=== PATIENT | male | born 1945 | race Caucasian/White ===

== ENCOUNTER 2018-04-28 09:25 | Inpatient (IN) | payer MEDICARE, OTHER ==
[2018-04-28] MEDS ORDERED: Labetalol HCl 100 MG/20 ML VIAL SLOW IVP PRN (10:02)
[2018-04-28] MEDS ORDERED: Lorazepam 2 MG/ML VIAL SLOW IVP PRN (10:03)
[2018-04-28 10:07] LABS: Acetaminophen Less than 6.0 mcg/mL (10.0-30.0); Alcohol Less than 10 mg/dL (Less than 10); Salicylate Less than 8.0 mg/dL (15.0-30.0)
[2018-04-28 10:22] LABS: CKMB 4.2 ng/mL (0-6.6); Troponin I 0.049 ng/mL (< 0.028)
[2018-04-28] MEDS ORDERED: Milk Of Magnesia 30 ML UDCUP PO PRN (10:59)
[2018-04-28] MEDS ORDERED: Acetaminophen 325 MG TAB PO PRN (10:59)
[2018-04-28 11:17] LABS: Amphetamine Not Detected (NotDetected); Barbiturates Screen Not Detected (NotDetected); Benzodiazepine Screen Not Detected (NotDetected); Cocaine Metabolite Screen Not Detected (NotDetected); Medtox Control Line Valid? VALID (VALID); Medtox Reader # READER 4; Methadone Not Detected (NotDetected); Methamphetamine Not Detected (NotDetected); Opiate Screen Not Detected (NotDetected); Oxycodone Screen Not Detected (NotDetected); Phencyclidine (PCP) Not Detected (NotDetected); THC/Cannabinoid Screen Not Detected (NotDetected); Tricyclic Screen Not Detected (NotDetected)
[2018-04-28 11:19] LABS: Bilirubin Moderate (Negative); Blood, Urine Moderate (Negative); Clarity CLEAR (Clear); Glucose, Urine (Dipstick) Negative (Negative); Leukocyte Trace (Negative); Nitrite Negative (Negative); Protein, Urine (Dipstick) 300 mg/dL (Neg-Trace); Specific Gravity, Urine 1.016 (1.002-1.036)
[2018-04-28 11:22] LABS: Bacteria/HPF None Seen HPF (None Seen); Hyaline Casts/LPF 0-3 HYALINE CAST LPF (0-3 Hyaline); Squamous Epithelial 0-3 HPF (0-3); WBC/HPF 0-3 HPF (0-3)
--- NOTE | 2018-04-28 11:49 | HP ---
PRIMARY CARE PHYSICIAN: The patient cannot remember. CHIEF COMPLAINT: "I really don't know why I was here". HISTORY OF PRESENT ILLNESS: Mr. Matthias Anne is a 73-year-old male with a past medical history which he states is likely elevated blood pressure and high cholesterol. He clearly reports a history of chronic alcohol abuse, drinking about a pint of beer daily, but does not report any withdrawal symptoms because he does not stop drinking. He reports his last drink being around 8:00 p.m. last night. Earlier today, he was found [place] by the side [place] [address] and 911 was called. He was found disoriented and confused by the roadside. On EMS arrival, his blood pressure was found to be 200/130. He was given 2 doses of 10 mg IV labetalol as well as nitro paste and clonidine with better blood pressure control. He was then taken to the emergency room where he had a CT scan of his brain without contrast done which showed nothing acute, but showed hypoattenuation, which could be old or new. He was then transferred to [facility] for possible MRI and neurological evaluation. At the emergency room, the patient states he does not remember how he got there and history was limited due to this acute encephalopathy this patient is suffering from. PAST MEDICAL HISTORY: Hypertension, hyperlipidemia, chronic alcohol abuse. Other medical history difficult to elicit. HOME MEDICATIONS: Bupropion, cilostazol, digoxin, diltiazem, midodrine, Seroquel. PAST SURGICAL HISTORY: Unknown. FAMILY HISTORY: Unclear. SOCIAL HISTORY: He drinks 1 pint of whiskey daily, but denies smoking, no illicit drug use. ALLERGIES: He denies any known drug allergies. REVIEW OF SYSTEMS: Unable to obtain as patient is currently altered. PHYSICAL EXAMINATION: VITAL SIGNS: Blood pressure 168/94. Other vital signs within normal limit. The patient is not requiring supplemental oxygen. HEENT: Normocephalic, atraumatic. Not pale, anicteric. Moist mucous membranes. PERRLA, EOMI. NECK: Supple. No JVD. Full range of movement. CARDIOVASCULAR: S1 and S2, only with a regular rate and rhythm. No murmurs, rubs or gallops. RESPIRATORY: Vesicular breath sounds bilaterally. No wheezes, rales or rhonchi. ABDOMEN: Soft, nontender, nondistended. Bowel sounds normoactive. No hepatosplenomegaly. MUSCULOSKELETAL: No edema. Moves all extremities spontaneously. NEUROLOGIC: Alert and oriented to person and place only. Not oriented to time. He has no obvious focal deficits and no tremors. SKIN: Warm, dry, well-perfused. No rashes or lesions. LABORATORY DATA: CBC significant for thrombocytopenia. Serum magnesium was 1.0 , ammonia of 100. Initial troponin 0.049. EKG showed no signs of acute ischemia. ASSESSMENT: 1. Acute encephalopathy. 2. Elevated ammonia level. 3. Elevated troponin. 4. Chronic alcohol abuse. 5. Thrombocytopenia. 6. Hypertensive urgency. 7. Hypomagnesemia. PLAN: The patient has acute encephalopathy which could be due to his hyperammonemia. A MRI of the brain has been ordered since he showed some attenuation so we also need to rule out a possible CVA, especially with his hypertensive urgency. In addition, we are repleting his magnesium, repleting on CIWA protocol for possible alcohol withdrawal while he is in the hospital. We will also trend his troponin, monitor him on telemetry and obtain a neurologic consult. For his thrombocytopenia we will avoid pharmacological prophylaxis and place on SCDs. In addition, we will obtain a lipid profile, A1c , TSH. He will also be started on aspirin and a statin for possible primary prevention. He might also require an echocardiogram as well as PT/OT evaluation in the next day or so. For hypertensive urgency, it is better controlled since labetalol and clonidine was give. Will place on clonidine 0.1 mg BID due to his h/o alcohol abuse, conrtinue his home diltiazem dose and then labetalol IV PRN. CODE: Full code CVT Prophylaxis: SCDs. MTDD
[2018-04-28 13:27] VITALS: BMI 26.3
[2018-04-28 14:40] LABS: Troponin I 0.054 ng/mL (< 0.028)
--- NOTE | 2018-04-28 14:57 | MRI ---
MRI BRAIN WITHOUT CONTRAST: Date: 04/28/18 HISTORY: Altered mental status. Acute encephalopathy. FINDINGS: Comparison made with exam of 01/10/15. There is a large area of restricted diffusion in the right MERCHANDISING DIRECTOR territory consistent with acute infarc tion. There is T2 prolongation in this region. No evidence of hemorrhage, midline shift, or abnormal extra-axial fluid collections are seen. There is mass effect on the right occipital horn. There are c hanges of cortical atrophy. IMPRESSION: Large acute right MERCHANDISING DIRECTOR infarction. POS: SISSY
[2018-04-28 14:58] LABS: #Basophils 0.1 thou/uL (0.0-0.2); #Eosinphils 0.1 thou/uL (0.0-0.7); #Lymphocytes 1.4 thou/uL (1.20-3.40); #Monocytes 0.7 thou/uL (0.11-0.59); #Neutrophils 3.8 thou/uL (1.40-6.50); %Basophils 1.1 % (0.0-1.0); %Eosinophils 1.4 % (0.0-10.0); %Lymphocytes 22.9 % (21.0-51.0); %Monocytes 11.8 % (0.0-10.0); %Neutrophils 62.8 % (42.0-75.0); Hemoglobin 16.5 g/dL (14.0-18.0); Mean Corpuscular HGB CONC 32.5 g/dL (32.0-36.0); Mean Corpuscular Hemoglobin 33.7 pg (27.0-31.0); Mean Platelet Volume 10.1 fL (7.4-10.4); Platelet Count 60 thou/uL (130-400); RBC Distribution Width 12.4 % (11.5-14.5); Red Blood Cell (RBC) Count 4.89 mill/uL (4.70-6.10); White Blood Cell (WBC) Count 6.1 thou/uL (4.8-10.8)
[2018-04-28 15:15] LABS: ALT (SGPT) 49 U/L (8-55); AST (SGOT) 86 U/L (5-34); Albumin 3.9 g/dL (3.4-4.8); Alkaline Phosphatase 88 U/L (40-150); Anion Gap 21 mmol/L (10-20); BUN (Urea Nitrogen) 16 mg/dL (8.4-25.7); Bilirubin, Total 3.4 mg/dL (0.2-1.2); Calc. Creatinine Clearance 71 mL/min (70-130); Calcium 9.3 mg/dL (7.8-10.44); Carbon Dioxide 24 mmol/L (23-31); Chloride 94 mmol/L (98-107); Estimated GFR-MDRD 61; Globulin 3.5 g/dL (2.4-3.5); Glucose 98 mg/dL (83-110); Potassium 4.3 mmol/L (3.5-5.1); Protein, Total 7.4 g/dL (5.8-8.1); Sodium 135 mmol/L (136-145)
[2018-04-28] MEDS ORDERED: hydrALAZINE 20 MG/ML VIAL SLOW IVP PRN (17:29)
[2018-04-28] MEDS ORDERED: Magnesium Sulfate 4 GM in Sodium Chloride 0.9% 250 ML 250 ML IVPB SCH (17:45)
[2018-04-28] MEDS ORDERED: Diazepam 5 MG TAB PO PRN (20:19)
[2018-04-28] MEDS ORDERED: Diazepam 5 MG TAB PO SCH (20:30)
[2018-04-28] MEDS ORDERED: Thiamine HCl 200 MG/2 ML VIAL IM SCH (20:30)
[2018-04-28] MEDS ORDERED: Prevnar 13-Val Conj/PF 0.5 ML SYRINGE IM ONE (21:00)
[2018-04-28] MEDS: Docusate 100 MG CAP PO SCH (21:03)
[2018-04-28] MEDS: cloNIDine 0.1 MG TAB PO SCH (21:03)
[2018-04-29] MEDS: cloNIDine 0.1 MG TAB PO PRN (03:39)
[2018-04-29] MEDS ORDERED: Diazepam 5 MG TAB PO PRN (04:00)
[2018-04-29 04:43] LABS: #Eosinphils 0.2 thou/uL (0.0-0.7); #Lymphocytes 1.9 thou/uL (1.20-3.40); #Monocytes 0.7 thou/uL (0.11-0.59); #Neutrophils 3.7 thou/uL (1.40-6.50); %Basophils 0.3 % (0.0-1.0); %Eosinophils 2.4 % (0.0-10.0); %Monocytes 10.7 % (0.0-10.0); %Neutrophils 57.5 % (42.0-75.0); Hemoglobin 17.4 g/dL (14.0-18.0); Mean Corpuscular HGB CONC 32.8 g/dL (32.0-36.0); Mean Corpuscular Hemoglobin 34.2 pg (27.0-31.0); Mean Platelet Volume 10.4 fL (7.4-10.4); Platelet Count 60 thou/uL (130-400); RBC Distribution Width 12.5 % (11.5-14.5); Red Blood Cell (RBC) Count 5.08 mill/uL (4.70-6.10); White Blood Cell (WBC) Count 6.4 thou/uL (4.8-10.8)
[2018-04-29 04:56] LABS: ALT (SGPT) 54 U/L (8-55); AST (SGOT) 93 U/L (5-34); Albumin 4.2 g/dL (3.4-4.8); Alkaline Phosphatase 91 U/L (40-150); Anion Gap 17 mmol/L (10-20); BUN (Urea Nitrogen) 16 mg/dL (8.4-25.7); Bilirubin, Total 3.2 mg/dL (0.2-1.2); Calc. Creatinine Clearance 66 mL/min (70-130); Calcium 9.9 mg/dL (7.8-10.44); Carbon Dioxide 30 mmol/L (23-31); Cardiac Risk 1.9 (Less than 4.5); Chloride 94 mmol/L (98-107); Cholesterol 171 mg/dl (< 200 Desired); Estimated GFR-MDRD 56; Globulin 3.6 g/dL (2.4-3.5); Glucose 102 mg/dL (83-110); HDL Cholesterol 90 mg/dL (>60 Neg Risk); LDL Cholesterol, Calculated 64 mg/dL; Potassium 3.5 mmol/L (3.5-5.1); Protein, Total 7.8 g/dL (5.8-8.1); Sodium 137 mmol/L (136-145); Triglycerides 87 mg/dL (Less than 150)
[2018-04-29 04:57] LABS: Troponin I 0.037 ng/mL (< 0.028)
[2018-04-29] MEDS: Multivitamin W/ Minerals 1 TAB PO SCH (08:02)
[2018-04-29] MEDS: cloNIDine 0.1 MG TAB PO SCH ×2 (08:02→21:38)
[2018-04-29] MEDS: Aspirin 325 MG TAB PO SCH (08:02)
[2018-04-29] MEDS: Magnesium Oxide 400 MG TAB PO SCH (08:03)
[2018-04-29] MEDS: Docusate 100 MG CAP PO SCH ×2 (08:03→21:38)
[2018-04-29] MEDS: Folic Acid 1 MG TAB PO SCH ×2 (08:03→08:04)
[2018-04-29] MEDS: Multivit, Chewable SF 1 TAB PO SCH (08:04)
--- NOTE | 2018-04-29 11:23 | PQF ---
DATE: 04-29-18 ATTN: DR. KEYON STANLEY Please exercise your independent, professional judgment in responding to the clarification form. Clinical indicators are provided on the bottom of this form for your review Please check appropriate box(s): [xx ] Demand Ischemia [ ] NM Type ( ) [ ] Other diagnosis [ ] Unable to determine In addition, please specify: Present on Admission (POA): [ ] Yes [ ] No [ ] Unable to determine CLINICAL INDICATORS - SIGNS / SYMPTOMS / LABS: TROPONIN: 04-28: 0.049 0.054 04-29: 0.037 RISKS: ER: CONFUSION, MENTAL STATUS CHANGES, HX OF STROKE, NM, WOODS, HTN, CVA TREATMENTS:ER DOCUMENTATION: PT WAS GIVEN LABETALOL, NITRO PASTE AND CLONIDINE. (This form is maintained as a part of the permanent medical record) 2014 [employer] All Rights Reserved [email or web address] [email or web address] Office: [phone] MICHELLE
--- NOTE | 2018-04-29 11:32 | PDOC.PN ---
- Subjective Encounter Start Date: 04/29/18 (f/u stroke) Encounter Start Time: 11:31 Subjective: Pt denies any complaints or concerns, denies any pain -: is not aware of why he is in the hospital. RN's report -: he is ambulating without assistance - Objective Vital Signs & Weight: Vital Signs (12 hours) Temp Pulse Resp BP BP Pulse Ox 04/29/18 08:03 85 203/99 H 04/29/18 08:02 203/99 H 04/29/18 07:45 97.4 F L 85 16 203/99 H 98 04/29/18 05:17 182/92 H 04/29/18 03:53 97.9 F 84 20 197/105 H 96 04/29/18 03:39 206/97 H 04/29/18 00:00 97.5 F L 87 20 187/105 H 94 L Weight Admit Weight 194 lb 3.636 oz Weight 194 lb 3.636 oz Result Diagrams: 04/29/18 04:08 04/29/18 04:08 EKG Reviewed by me: Yes (abif with rate 70-90's, refusing monitor) Phys Exam - Physical Examination Constitutional: NAD Respiratory: no wheezing, no rales, no rhonchi, clear to auscultation bilateral Cardiovascular: no significant murmur, irregular Gastrointestinal: soft, non-tender, no distention, positive bowel sounds Musculoskeletal: no edema, pulses present Neurological: non-focal, moves all 4 limbs strength 5/5 upper and lower extremities, pupils equal and round eomi Deviation from normal: alert, oriented to person, president but not to time or location Skin: no rash Deviation from normal: general erythematous hue of face Dx/Plan (1) Ischemic stroke Code(s): I63.9 - CEREBRAL INFARCTION, UNSPECIFIED Status: Acute (2) Atrial fibrillation Code(s): I48.91 - UNSPECIFIED ATRIAL FIBRILLATION Status: Acute Qualifiers: Atrial fibrillation type: unspecified Qualified Code(s): I48.91 - Unspecified atrial fibrillation (3) Hypertension Code(s): I10 - ESSENTIAL (PRIMARY) HYPERTENSION Status: Chronic Qualifiers: Hypertension type: essential hypertension Qualified Code(s): I10 - Essential (primary) hypertension (4) Chronic alcohol abuse Code(s): F10.10 - ALCOHOL ABUSE, UNCOMPLICATED Status: Chronic (5) Encephalopathy Code(s): G93.40 - ENCEPHALOPATHY, UNSPECIFIED Status: Acute (6) Hyperammonemia Code(s): E72.20 - DISORDER OF UREA CYCLE METABOLISM, UNSPECIFIED Status: Resolved (7) Thrombocytopenia Code(s): D69.6 - THROMBOCYTOPENIA, UNSPECIFIED Status: Chronic - Plan * 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 * echo ordered * will need cardiology - inpt vs outpt based on echo, as pt is rate controlled and not a candidate for anticoagulation * htn - on diltiazem and clonidine, and allowing for permissive htn. will use prn meds as stroke is about 24 hours * alcohol abuse/chronic use - continue supplements, monitor for withdrawal sx and use prn valium * Thrombocytopenia, elevated lft's - likely from alcohol abuse * * ammonia level back to normal * * dvt prophy - ambulatory, not a candidate for lovenox due to thrombocytopenia * gi prophy - not indicated * * reviewed plan of care twice with patient and he didnt remember having a stroke - reviewed with RN and will discuss/answer questions with family as they are available * * pt remains at high risk in current condition *
--- NOTE | 2018-04-29 11:39 | CON ---
DATE OF CONSULTATION: 04/28/2018 REFERRING PROVIDER: Salvador Oliver MD REASON FOR CONSULTATION: Altered mental status. HISTORY OF PRESENT ILLNESS: Mr. Anne is a pleasant 73-year-old male who has been consulted for evaluation of altered mental status. History is limited as patient is unable to provide. There are no family member present at bedside, thus most of the history is obtained from patient's medical records and dictated H and P note. Apparently, he has a history of high blood pressure and high cholesterol as well as heavy alcohol use. [place] side [place] [address] and 911 was called. He was found disoriented and confused by the roadside. On EMS arrival, his blood pressure was noted to be 200/130. He was brought to the [facility] where a CT scan of the head done which showed hypoattenuation in the right occipital area. For this reason, he was transferred to [facility]. Since being here, patient has no recollection of why he is in the hospital. I am being asked to further evaluate for this episode of confusion. PAST MEDICAL HISTORY: Reviewed and they are as dictated in H and P note done by Dr. Oliver. PAST SURGICAL HISTORY: Reviewed and they are as dictated in H and P note done by Dr. Oliver. FAMILY HISTORY: Reviewed and they are as dictated in H and P note done by Dr. Oliver. SOCIAL HISTORY: Reviewed and they are as dictated in H and P note done by Dr. Oliver. CURRENT MEDICATIONS: Reviewed and they are as dictated in H and P note done by Dr. Oliver. ALLERGIES: Reviewed and they are as dictated in H and P note done by Dr. Oliver. REVIEW OF SYSTEMS: Unable to perform. PHYSICAL EXAMINATION: VITAL SIGNS: Blood pressure of 206/97, pulse of 81, temperature 97.4, respirations of 16, O2 sats 96% on room air. GENERAL: Well-developed and well-nourished male in no apparent distress. RESPIRATORY: Clear to auscultation bilaterally. CARDIOVASCULAR: Regular rate and rhythm. NEUROLOGIC: Mental status: The patient is awake and alert, and oriented to person only. He is able to follow some simple commands. Speech and language appears normal. Cranial nerves: Pupils are 3 mm and reactive. He has a left upper quadrant quadrantanopia. Face is symmetric. Tongue and uvula are midline. Motor exam showed normal tone and bulk with a 5/5 strength in both upper and lower extremities. Sensory: Sensation is intact and symmetric. Deep tendon reflexes 2+ reflexes in both upper and lower extremities. Babinski : Plantar responses flexion bilaterally. Coordination intact to finger-nose- finger, finger tapping bilaterally. Gait and Romberg are normal. LABORATORY DATA: Reviewed, which included CBC, CMP, urinalysis, urine drug screen, plasma alcohol level, which is significant for total bilirubin of 3.4, AST of 86, troponin of 0.054. Urinalysis showed trace leukocyte esterase, but 0 -3 wbc, otherwise unremarkable. IMAGING STUDIES: MRI brain without contrast was reviewed, which showed large right HEALTH INFORMATION SPECIALIST distribution with ischemic infarct in the occipital region. IMPRESSION: 1. Right occipital/right HEALTH INFORMATION SPECIALIST distribution ischemic infarct. 2. Hypertension. 3. Hyperlipidemia. PLAN: Mr. Anne is a pleasant 73-year-old male who presented with altered mental status. He had MRI brain done, which did show acute right HEALTH INFORMATION SPECIALIST distribution ischemic infarct. His confusion is likely secondary to toxic metabolic encephalopathy. I would recommend consulting PT, OT, and speech therapy and needs to be placed on banana bag as well as alcohol withdrawal precautions. I would recommend starting patient on aspirin 325 mg daily for secondary stroke prevention. Also, recommend obtaining echocardiogram. Continue current medical management. Continue supportive care. Thank you for consultation. MICHELLE
[2018-04-30 05:43] LABS: #Basophils 0.1 thou/uL (0.0-0.2); #Eosinphils 0.3 thou/uL (0.0-0.7); #Lymphocytes 1.5 thou/uL (1.20-3.40); #Monocytes 0.7 thou/uL (0.11-0.59); #Neutrophils 3.7 thou/uL (1.40-6.50); %Eosinophils 4.2 % (0.0-10.0); %Lymphocytes 24.7 % (21.0-51.0); %Neutrophils 59.1 % (42.0-75.0); Hemoglobin 15.3 g/dL (14.0-18.0); Mean Corpuscular HGB CONC 31.9 g/dL (32.0-36.0); Mean Corpuscular Hemoglobin 33.4 pg (27.0-31.0); Mean Platelet Volume 10.8 fL (7.4-10.4); Platelet Count 56 thou/uL (130-400); RBC Distribution Width 12.3 % (11.5-14.5); White Blood Cell (WBC) Count 6.3 thou/uL (4.8-10.8)
[2018-04-30 06:00] LABS: ALT (SGPT) 51 U/L (8-55); AST (SGOT) 86 U/L (5-34); Albumin 3.5 g/dL (3.4-4.8); Alkaline Phosphatase 72 U/L (40-150); Anion Gap 15 mmol/L (10-20); BUN (Urea Nitrogen) 19 mg/dL (8.4-25.7); Calc. Creatinine Clearance 73 mL/min (70-130); Calcium 9.3 mg/dL (7.8-10.44); Carbon Dioxide 28 mmol/L (23-31); Chloride 96 mmol/L (98-107); Estimated GFR-MDRD 63; Glucose 96 mg/dL (83-110); Potassium 3.4 mmol/L (3.5-5.1); Protein, Total 6.5 g/dL (5.8-8.1); Sodium 136 mmol/L (136-145)
[2018-04-30] MEDS: Multivitamin W/ Minerals 1 TAB PO SCH (09:08)
[2018-04-30] MEDS: Magnesium Oxide 400 MG TAB PO SCH (09:08)
[2018-04-30] MEDS: Folic Acid 1 MG TAB PO SCH ×2 (09:08→09:12)
[2018-04-30] MEDS: Docusate 100 MG CAP PO SCH ×2 (09:09→20:56)
[2018-04-30] MEDS: Aspirin 325 MG TAB PO SCH (09:09)
[2018-04-30] MEDS: cloNIDine 0.1 MG TAB PO SCH ×2 (09:09→20:56)
[2018-04-30] MEDS: Multivit, Chewable SF 1 TAB PO SCH (09:12)
[2018-04-30] MEDS ORDERED: Lorazepam 1 MG TAB PO PRN (10:06)
--- NOTE | 2018-04-30 20:27 | PDOC.PN ---
- Subjective Encounter Start Date: 04/30/18 Encounter Start Time: 11:00 Patient seen and examined for encephalopathy/Acute CVA. Still confused. No overnight events - Objective MAR Reviewed: Yes Vital Signs & Weight: Vital Signs (12 hours) Temp Pulse Resp BP BP Pulse Ox 04/30/18 20:00 97.7 F 100 18 185/95 H 96 04/30/18 15:33 98.6 F 93 16 174/95 H 97 04/30/18 11:46 97.4 F L 99 16 149/84 H 92 L 04/30/18 09:09 87 203/99 H Weight Admit Weight 194 lb 3.636 oz Weight 194 lb 3.636 oz Result Diagrams: 04/30/18 05:09 04/30/18 05:09 EKG Reviewed by me: Yes (Tele SR) Phys Exam - Physical Examination Constitutional: NAD Respiratory: no wheezing, no rhonchi Cardiovascular: RRR, no rub Gastrointestinal: soft, non-tender, positive bowel sounds Musculoskeletal: no edema Neurological: moves all 4 limbs Psychiatric: normal affect Deviation from normal: Confused Dx/Plan (1) Acute CVA (cerebrovascular accident) Code(s): I63.9 - CEREBRAL INFARCTION, UNSPECIFIED Status: Acute (2) Toxic metabolic encephalopathy Code(s): G92 - TOXIC ENCEPHALOPATHY Status: Acute Comment: Hepatic encephalopathy (3) Paroxysmal A-fib Code(s): I48.0 - PAROXYSMAL ATRIAL FIBRILLATION Status: Chronic Comment: probably not a anticoag candidate (4) Chronic alcohol abuse Code(s): F10.10 - ALCOHOL ABUSE, UNCOMPLICATED Status: Chronic - Plan PT/OT, DVT proph w/SCDs Cont ASA -: Reduce Lactulose to 10 mg TID -: Pt refusing tele monitors -: Cont current meds as below -: Home meds unavailable, AM labs Review of Systems - Review of Systems Respiratory: negative: Cough, Dry, Shortness of Breath, Hemoptysis, SOB with Excertion, Pleuritic Pain, Sputum, Wheezing Cardiovascular: negative: chest pain, palpitations, orthopnea, paroxysmal nocturnal dyspnea, edema, light headedness, other - Medications/Allergies Allergies/Adverse Reactions: Allergies Allergy/AdvReac Type Severity Reaction Status Date / Time No Known Allergies Allergy Unverified 05/22/17 17:13 Medications: Current Medications Acetaminophen (Tylenol) 650 mg PO Q4H PRN PRN Reason: Headache/Fever or Pain Aspirin (Aspirin) 325 mg PO DAILY [facility] Last Admin: 04/30/18 09:09 Dose: 325 mg Clonidine (Catapres) 0.1 mg PO BID [facility] Last Admin: 04/30/18 09:09 Dose: 0.1 mg Clonidine (Catapres) 0.1 mg PO Q4H PRN PRN Reason: SBP > 180 Last Admin: 04/29/18 03:39 Dose: 0.1 mg Diltiazem HCl (Cardizem Cd) 120 mg PO DAILY [facility] Last Admin: 04/30/18 09:09 Dose: 120 mg Docusate Sodium (Colace) 100 mg PO BID [facility] Last Admin: 04/30/18 09:09 Dose: 100 mg Folic Acid (Folvite) 1 mg PO DAILY [facility] Last Admin: 04/30/18 09:08 Dose: 1 mg Hydralazine HCl (Apresoline) 10 mg SLOW IVP Q4H PRN PRN Reason: Hypertension Iron/Minerals/Multivitamins (Theragran M) 1 tab PO DAILY [facility] Last Admin: 04/30/18 09:08 Dose: 1 tab Labetalol HCl (Normodyne) 10 mg SLOW IVP Q4H PRN PRN Reason: SBP Greater Than 180 Last Admin: 04/28/18 17:08 Dose: 2 ml Lactulose (Lactulose) 10 gm PO TID [facility] Last Admin: 04/30/18 15:42 Dose: 10 gm Lorazepam (Ativan) 1 mg PO Q4H PRN PRN Reason: ASE >=9 Magnesium Hydroxide (Milk Of Magnesium) 30 ml PO DAILYPRN PRN PRN Reason: Constipation Magnesium Oxide (Magnesium Oxide) 400 mg PO DAILY [facility] Last Admin: 04/30/18 09:08 Dose: 400 mg Thiamine HCl (Thiamine) 100 mg PO DAILY [facility] Last Admin: 04/30/18 09:09 Dose: 100 mg
[2018-05-01] MEDS: cloNIDine 0.1 MG TAB PO SCH (08:44)
[2018-05-01] MEDS: Folic Acid 1 MG TAB PO SCH (08:44)
[2018-05-01] MEDS: Aspirin 325 MG TAB PO SCH (08:44)
[2018-05-01] MEDS: Propranolol HCl LA 80 MG CAP PO SCH (08:45)
[2018-05-01] MEDS: Magnesium Oxide 400 MG TAB PO SCH (08:45)
[2018-05-01] MEDS: Docusate 100 MG CAP PO SCH ×2 (08:45→20:36)
[2018-05-01] MEDS: Multivitamin W/ Minerals 1 TAB PO SCH (08:45)
--- NOTE | 2018-05-01 12:29 | PDOC.PN ---
- Subjective Encounter Start Date: 05/01/18 Encounter Start Time: 12:35 patient with a h/o chronic alcohol abuse and HTN admitted for new CVA. No complants but patient has new anterograde amnesia. No acute events overnight. - Objective MAR Reviewed: Yes Vital Signs & Weight: Vital Signs (12 hours) Temp Pulse Resp BP BP Pulse Ox 05/01/18 11:31 97.5 F L 79 16 106/53 L 92 L 05/01/18 08:45 76 05/01/18 08:44 185/95 H 05/01/18 08:40 98.3 F 76 16 185/95 H 98 05/01/18 07:30 98.3 F 76 16 139/115 H 98 05/01/18 04:00 97.8 F 113 H 18 129/75 93 L Weight Admit Weight 194 lb 3.636 oz Weight 194 lb 3.636 oz I&O: 04/30/18 05/01/18 05/02/18 06:59 06:59 06:59 Intake Total 240 Balance 240 Result Diagrams: 04/30/18 05:09 04/30/18 05:09 Phys Exam - Physical Examination Constitutional: NAD HEENT: moist MMs, sclera anicteric Neck: supple, full ROM Respiratory: no wheezing, no rales, no rhonchi, clear to auscultation bilateral Cardiovascular: RRR, no significant murmur, no rub Gastrointestinal: soft, non-tender, no distention, positive bowel sounds Musculoskeletal: no edema, pulses present Neurological: moves all 4 limbs Oritnetd to person and place w anterograde amnesia. Skin: no rash, normal turgor Dx/Plan (1) Ischemic stroke Code(s): I63.9 - CEREBRAL INFARCTION, UNSPECIFIED Status: Acute (2) Encephalopathy Code(s): G93.40 - ENCEPHALOPATHY, UNSPECIFIED Status: Acute (3) Chronic alcohol abuse Code(s): F10.10 - ALCOHOL ABUSE, UNCOMPLICATED Status: Chronic (4) Hypertension Code(s): I10 - ESSENTIAL (PRIMARY) HYPERTENSION Status: Chronic Qualifiers: Hypertension type: essential hypertension Qualified Code(s): I10 - Essential (primary) hypertension (5) Paroxysmal A-fib Code(s): I48.0 - PAROXYSMAL ATRIAL FIBRILLATION Status: Chronic Comment: probably not a anticoag candidate (6) Thrombocytopenia Code(s): D69.6 - THROMBOCYTOPENIA, UNSPECIFIED Status: Chronic - Plan cont current plan of care, PT/OT, social services coordinator, speech therapy, out of bed/ ambulate, DVT proph w/heparin Large [employer]ER [employer] stroke with only deficit on exam is short term memory- continue ASA and Statin, PT/OT, speech Atrial fibrillation - uncertain if new or known, due to large stroke and thrombocytopenia, not a candidate for full anticoagulation at this time: continue rate control with diltiazem. Echo showed normal EF. HTN: patient reportedly on Diltiazem and Propranolol on outpatient basis. Will monitor. Review of Systems - Medications/Allergies Allergies/Adverse Reactions: Allergies Allergy/AdvReac Type Severity Reaction Status Date / Time No Known Allergies Allergy Unverified 05/22/17 17:13 Medications: Current Medications Acetaminophen (Tylenol) 650 mg PO Q4H PRN PRN Reason: Headache/Fever or Pain Aspirin (Aspirin) 325 mg PO DAILY [facility] Last Admin: 05/01/18 08:44 Dose: 325 mg Clonidine (Catapres) 0.1 mg PO BID [facility] Last Admin: 05/01/18 08:44 Dose: 0.1 mg Clonidine (Catapres) 0.1 mg PO Q4H PRN PRN Reason: SBP > 180 Last Admin: 04/29/18 03:39 Dose: 0.1 mg Diltiazem HCl (Cardizem Cd) 120 mg PO DAILY [facility] Last Admin: 05/01/18 08:45 Dose: 120 mg Docusate Sodium (Colace) 100 mg PO BID [facility] Last Admin: 05/01/18 08:45 Dose: 100 mg Folic Acid (Folvite) 1 mg PO DAILY [facility] Last Admin: 05/01/18 08:44 Dose: 1 mg Hydralazine HCl (Apresoline) 10 mg SLOW IVP Q4H PRN PRN Reason: Hypertension Iron/Minerals/Multivitamins (Theragran M) 1 tab PO DAILY [facility] Last Admin: 05/01/18 08:45 Dose: 1 tab Labetalol HCl (Normodyne) 10 mg SLOW IVP Q4H PRN PRN Reason: SBP Greater Than 180 Last Admin: 04/28/18 17:08 Dose: 2 ml Lactulose (Lactulose) 10 gm PO TID [facility] Last Admin: 05/01/18 08:43 Dose: 10 gm Lorazepam (Ativan) 1 mg PO Q4H PRN PRN Reason: ASE >=9 Magnesium Hydroxide (Milk Of Magnesium) 30 ml PO DAILYPRN PRN PRN Reason: Constipation Magnesium Oxide (Magnesium Oxide) 400 mg PO DAILY [facility] Last Admin: 05/01/18 08:45 Dose: 400 mg Propranolol HCl (Inderal La) 80 mg PO DAILY [facility] Last Admin: 05/01/18 08:45 Dose: 80 mg Quetiapine Fumarate (Seroquel) 300 mg PO [facility] Thiamine HCl (Thiamine) 100 mg PO DAILY [facility] Last Admin: 05/01/18 08:45 Dose: 100 mg
[2018-05-01] MEDS ORDERED: Potassium Chloride 20 MEQ TAB PO SCH (12:45)
[2018-05-01] MEDS: Atorvastatin Calcium 40 MG TAB PO SCH (20:36)
[2018-05-02 06:26] LABS: Hemoglobin 15.1 g/dL (14.0-18.0); Mean Corpuscular HGB CONC 31.5 g/dL (32.0-36.0); Mean Corpuscular Hemoglobin 32.5 pg (27.0-31.0); Mean Platelet Volume 10.1 fL (7.4-10.4); Platelet Count 68 thou/uL (130-400); RBC Distribution Width 12.3 % (11.5-14.5); Red Blood Cell (RBC) Count 4.64 mill/uL (4.70-6.10); White Blood Cell (WBC) Count 6.9 thou/uL (4.8-10.8)
[2018-05-02 06:47] LABS: Anion Gap 14 mmol/L (10-20); BUN (Urea Nitrogen) 21 mg/dL (8.4-25.7); Calc. Creatinine Clearance 71 mL/min (70-130); Calcium 9.6 mg/dL (7.8-10.44); Carbon Dioxide 27 mmol/L (23-31); Chloride 100 mmol/L (98-107); Estimated GFR-MDRD 61; Glucose 106 mg/dL (83-110); Potassium 3.6 mmol/L (3.5-5.1); Sodium 137 mmol/L (136-145)
[2018-05-02] MEDS: Aspirin 325 MG TAB PO SCH (08:51)
[2018-05-02] MEDS: Potassium Chloride 20 MEQ TAB PO SCH (08:51)
[2018-05-02] MEDS: Magnesium Oxide 400 MG TAB PO SCH (08:51)
[2018-05-02] MEDS: Multivitamin W/ Minerals 1 TAB PO SCH (08:53)
[2018-05-02] MEDS: Folic Acid 1 MG TAB PO SCH (08:53)
[2018-05-02] MEDS: Docusate 100 MG CAP PO SCH ×2 (08:53→21:04)
[2018-05-02] MEDS: Propranolol HCl LA 80 MG CAP PO SCH (08:54)
--- NOTE | 2018-05-02 10:58 | PDOC.PN ---
- Subjective Encounter Start Date: 05/02/18 Encounter Start Time: 10:57 Patient seen and examined. he was found parked on [address], confused and disoriented. He has a h/o chronic alcohol abuse and HTN. CT brain revealed a new CVA, confirmed by MRI. No complaints but patient has new anterograde amnesia. No acute events overnight. - Objective MAR Reviewed: Yes Vital Signs & Weight: Vital Signs (12 hours) Temp Pulse Resp BP BP Pulse Ox 05/02/18 10:30 97.4 F L 85 14 127/68 05/02/18 08:51 85 127/68 05/02/18 03:42 97.5 F L 83 20 127/80 94 L 05/01/18 23:54 97.5 F L 77 20 156/91 H 93 L Weight Admit Weight 194 lb 3.636 oz Weight 194 lb 3.636 oz I&O: 05/01/18 05/02/18 05/03/18 06:59 06:59 06:59 Intake Total 240 600 Balance 240 600 Result Diagrams: 05/02/18 05:56 05/02/18 05:56 Phys Exam - Physical Examination Constitutional: NAD HEENT: moist MMs, sclera anicteric Neck: supple, full ROM Respiratory: no wheezing, no rales, no rhonchi, clear to auscultation bilateral Cardiovascular: RRR, no significant murmur, no rub Gastrointestinal: soft, non-tender, no distention, positive bowel sounds Musculoskeletal: no edema, pulses present Neurological: non-focal, moves all 4 limbs Dx/Plan (1) Ischemic stroke Code(s): I63.9 - CEREBRAL INFARCTION, UNSPECIFIED Status: Acute Comment: Stable. Still suffering from some amnesia. Continue ASA and Statins. (2) Chronic alcohol abuse Code(s): F10.10 - ALCOHOL ABUSE, UNCOMPLICATED Status: Chronic Comment: Stable. No signs of withdrawal. (3) Hypertension Code(s): I10 - ESSENTIAL (PRIMARY) HYPERTENSION Status: Chronic Qualifiers: Hypertension type: essential hypertension Qualified Code(s): I10 - Essential (primary) hypertension Comment: Controlled and at goal. (4) Paroxysmal A-fib Code(s): I48.0 - PAROXYSMAL ATRIAL FIBRILLATION Status: Chronic Comment: rate controlled. On ASA but probably not a anticoag candidate for now. (5) Thrombocytopenia Code(s): D69.6 - THROMBOCYTOPENIA, UNSPECIFIED Status: Chronic Comment: Stable. No signs of acute bleeding. Will hold PCOal anticoagulation and continue SCDs. (6) Hypokalemia Code(s): E87.6 - HYPOKALEMIA Status: Acute - Plan cont current plan of care, PT/OT, social studies teacher, speech therapy, out of bed/ ambulate, DVT proph w/SCDs * . Review of Systems - Medications/Allergies Allergies/Adverse Reactions: Allergies Allergy/AdvReac Type Severity Reaction Status Date / Time No Known Allergies Allergy Unverified 05/22/17 17:13 Medications: Current Medications Acetaminophen (Tylenol) 650 mg PO Q4H PRN PRN Reason: Headache/Fever or Pain Aspirin (Aspirin) 325 mg PO DAILY [facility] Last Admin: 05/02/18 08:51 Dose: 325 mg Atorvastatin Calcium (Lipitor) 40 mg PO HS [facility] Last Admin: 05/01/18 20:36 Dose: 40 mg Clonidine (Catapres) 0.1 mg PO Q4H PRN PRN Reason: SBP > 180 Last Admin: 04/29/18 03:39 Dose: 0.1 mg Diltiazem HCl (Cardizem Cd) 120 mg PO DAILY [facility] Last Admin: 05/02/18 08:51 Dose: 120 mg Docusate Sodium (Colace) 100 mg PO BID [facility] Last Admin: 05/02/18 08:53 Dose: 100 mg Folic Acid (Folvite) 1 mg PO DAILY [facility] Last Admin: 05/02/18 08:53 Dose: 1 mg Hydralazine HCl (Apresoline) 10 mg SLOW IVP Q4H PRN PRN Reason: Hypertension Iron/Minerals/Multivitamins (Theragran M) 1 tab PO DAILY [facility] Last Admin: 05/02/18 08:53 Dose: 1 tab Labetalol HCl (Normodyne) 10 mg SLOW IVP Q4H PRN PRN Reason: SBP Greater Than 180 Last Admin: 04/28/18 17:08 Dose: 2 ml Lorazepam (Ativan) 1 mg PO Q4H PRN PRN Reason: ASE >=9 Magnesium Hydroxide (Milk Of Magnesium) 30 ml PO DAILYPRN PRN PRN Reason: Constipation Magnesium Oxide (Magnesium Oxide) 400 mg PO DAILY [facility] Last Admin: 05/02/18 08:51 Dose: 400 mg Potassium Chloride (K-Dur) 20 meq PO QAM-WM [facility] Last Admin: 05/02/18 08:51 Dose: 20 meq Propranolol HCl (Inderal La) 80 mg PO DAILY [facility] Last Admin: 05/02/18 08:54 Dose: 80 mg Quetiapine Fumarate (Seroquel) 300 mg PO HS [facility] Last Admin: 05/01/18 20:36 Dose: 300 mg Thiamine HCl (Thiamine) 100 mg PO DAILY [facility] Last Admin: 05/02/18 08:50 Dose: 100 mg
[2018-05-02] MEDS: Atorvastatin Calcium 40 MG TAB PO SCH (21:04)
[2018-05-03] MEDS: Potassium Chloride 20 MEQ TAB PO SCH (09:19)
[2018-05-03] MEDS: Aspirin 325 MG TAB PO SCH (09:19)
[2018-05-03] MEDS: Folic Acid 1 MG TAB PO SCH (09:20)
[2018-05-03] MEDS: Magnesium Oxide 400 MG TAB PO SCH ×2 (09:20→20:36)
[2018-05-03] MEDS: Docusate 100 MG CAP PO SCH ×2 (09:20→20:36)
[2018-05-03] MEDS: Propranolol HCl LA 80 MG CAP PO SCH (09:20)
[2018-05-03] MEDS: Multivitamin W/ Minerals 1 TAB PO SCH (09:20)
--- NOTE | 2018-05-03 09:33 | PDOC.PN ---
- Subjective Encounter Start Date: 05/03/18 Encounter Start Time: 09:28 Patient seen and examined. he was found parked on [address], confused and disoriented. He has a h/o chronic alcohol abuse and HTN. 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 No complaints today but reports feeling well. He has a new anterograde amnesia. No acute events overnight. - Objective Vital Signs & Weight: Vital Signs (12 hours) Temp Pulse Resp BP BP BP Pulse Ox 05/03/18 09:19 79 144/67 H 05/03/18 08:00 144/67 H 05/03/18 07:34 97.7 F 79 14 144/67 H 94 L 05/03/18 05:50 97.6 F 73 16 147/78 H 147/78 H 97 05/02/18 23:42 97.9 F 72 16 149/85 H 149/85 H 95 Weight Admit Weight 194 lb 3.636 oz Weight 194 lb 3.636 oz I&O: 05/02/18 05/03/18 05/04/18 06:59 06:59 06:59 Intake Total 240 720 Balance 240 720 Result Diagrams: 05/02/18 05:56 05/02/18 05:56 Phys Exam - Physical Examination Constitutional: NAD HEENT: moist MMs, sclera anicteric Neck: no JVD, supple, full ROM Respiratory: no wheezing, no rales, no rhonchi, clear to auscultation bilateral Cardiovascular: RRR, no significant murmur, no rub Gastrointestinal: soft, non-tender, no distention, positive bowel sounds Musculoskeletal: no edema, pulses present Neurological: moves all 4 limbs Psychiatric: normal affect, A&O x 3 Skin: no rash, normal turgor Dx/Plan (1) Ischemic stroke Code(s): I63.9 - CEREBRAL INFARCTION, UNSPECIFIED Status: Acute Comment: Stable. Continue ASA and Statins. (2) Chronic alcohol abuse Code(s): F10.10 - ALCOHOL ABUSE, UNCOMPLICATED Status: Chronic Comment: Stable. No signs of withdrawal. (3) Hypertension Code(s): I10 - ESSENTIAL (PRIMARY) HYPERTENSION Status: Chronic Qualifiers: Hypertension type: essential hypertension Qualified Code(s): I10 - Essential (primary) hypertension Comment: Controlled and at goal. (4) Paroxysmal A-fib Code(s): I48.0 - PAROXYSMAL ATRIAL FIBRILLATION Status: Chronic Comment: rate controlled. On ASA but probably not a anticoag candidate for now. (5) Thrombocytopenia Code(s): D69.6 - THROMBOCYTOPENIA, UNSPECIFIED Status: Chronic Comment: Stable. No signs of acute bleeding. Continue SCDs. (6) Hypokalemia Code(s): E87.6 - HYPOKALEMIA Status: Acute - Plan cont current plan of care, PT/OT, social insurance analyst, out of bed/ambulate, DVT proph w/SCDs Awaiting placement. CM on board. Review of Systems - Medications/Allergies Allergies/Adverse Reactions: Allergies Allergy/AdvReac Type Severity Reaction Status Date / Time No Known Allergies Allergy Unverified 05/22/17 17:13 Medications: Current Medications Acetaminophen (Tylenol) 650 mg PO Q4H PRN PRN Reason: Headache/Fever or Pain Aspirin (Aspirin) 325 mg PO DAILY [facility] Last Admin: 05/03/18 09:19 Dose: 325 mg Atorvastatin Calcium (Lipitor) 40 mg PO HS [facility] Last Admin: 05/02/18 21:04 Dose: 40 mg Clonidine (Catapres) 0.1 mg PO Q4H PRN PRN Reason: SBP > 180 Last Admin: 04/29/18 03:39 Dose: 0.1 mg Diltiazem HCl (Cardizem Cd) 120 mg PO DAILY [facility] Last Admin: 05/03/18 09:19 Dose: 120 mg Docusate Sodium (Colace) 100 mg PO BID [facility] Last Admin: 05/03/18 09:20 Dose: 100 mg Folic Acid (Folvite) 1 mg PO DAILY [facility] Last Admin: 05/03/18 09:20 Dose: 1 mg Hydralazine HCl (Apresoline) 10 mg SLOW IVP Q4H PRN PRN Reason: Hypertension Iron/Minerals/Multivitamins (Theragran M) 1 tab PO DAILY [facility] Last Admin: 05/03/18 09:20 Dose: 1 tab Labetalol HCl (Normodyne) 10 mg SLOW IVP Q4H PRN PRN Reason: SBP Greater Than 180 Last Admin: 04/28/18 17:08 Dose: 2 ml Lorazepam (Ativan) 1 mg PO Q4H PRN PRN Reason: ASE >=9 Magnesium Hydroxide (Milk Of Magnesium) 30 ml PO DAILYPRN PRN PRN Reason: Constipation Magnesium Oxide (Magnesium Oxide) 400 mg PO DAILY [facility] Last Admin: 05/03/18 09:20 Dose: 400 mg Potassium Chloride (K-Dur) 20 meq PO QAM-WM [facility] Last Admin: 05/03/18 09:19 Dose: 20 meq Propranolol HCl (Inderal La) 80 mg PO DAILY [facility] Last Admin: 05/03/18 09:20 Dose: 80 mg Quetiapine Fumarate (Seroquel) 300 mg PO HS [facility] Last Admin: 05/02/18 21:04 Dose: 300 mg Thiamine HCl (Thiamine) 100 mg PO DAILY [facility] Last Admin: 05/03/18 09:20 Dose: 100 mg
[2018-05-03 11:42] LABS: Anion Gap 11 mmol/L (10-20); BUN (Urea Nitrogen) 26 mg/dL (8.4-25.7); Calc. Creatinine Clearance 55 mL/min (70-130); Calcium 10.1 mg/dL (7.8-10.44); Carbon Dioxide 32 mmol/L (23-31); Chloride 99 mmol/L (98-107); Estimated GFR-MDRD 45; Glucose 134 mg/dL (83-110); Magnesium 1.6 mg/dL (1.6-2.6); Potassium 4.1 mmol/L (3.5-5.1); Sodium 138 mmol/L (136-145)
[2018-05-03] MEDS ORDERED: Magnesium Sulfate 2 GM in Sodium Chloride 0.9% 100 ML IVPB SCH (15:30)
[2018-05-03] MEDS: Atorvastatin Calcium 40 MG TAB PO SCH (20:36)
[2018-05-04] MEDS: Aspirin 325 MG TAB PO SCH (09:10)
[2018-05-04] MEDS: Docusate 100 MG CAP PO SCH ×2 (09:10→20:26)
[2018-05-04] MEDS: Potassium Chloride 20 MEQ TAB PO SCH (09:10)
[2018-05-04] MEDS: Magnesium Oxide 400 MG TAB PO SCH ×2 (09:11→20:26)
[2018-05-04] MEDS: Propranolol HCl LA 80 MG CAP PO SCH (09:11)
[2018-05-04] MEDS: Folic Acid 1 MG TAB PO SCH (09:11)
[2018-05-04] MEDS: Multivitamin W/ Minerals 1 TAB PO SCH (09:11)
--- NOTE | 2018-05-04 13:38 | PDOC.PN ---
- Subjective Encounter Start Date: 05/04/18 Encounter Start Time: 16:16 Patient seen and examined. he was found parked on [address], confused and disoriented. He has a h/o chronic alcohol abuse and HTN. 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 No complaints today but reports feeling well. He has a new anterograde amnesia. No acute events overnight. - Objective MAR Reviewed: Yes Vital Signs & Weight: Vital Signs (12 hours) Temp Pulse Resp BP BP BP Pulse Ox 05/04/18 11:53 98.1 F 88 20 137/87 95 05/04/18 09:10 62 157/94 H 05/04/18 08:00 97.5 F L 62 20 157/94 H 97 05/04/18 04:00 97.4 F L 82 24 H 160/86 H 97 Weight Admit Weight 194 lb 3.636 oz Weight 194 lb 3.636 oz I&O: 05/03/18 05/04/18 05/05/18 06:59 06:59 06:59 Intake Total 720 Balance 720 Result Diagrams: 05/02/18 05:56 05/03/18 11:13 Phys Exam - Physical Examination Constitutional: NAD HEENT: moist MMs, sclera anicteric Neck: supple, full ROM Respiratory: no wheezing, no rales, no rhonchi, clear to auscultation bilateral Cardiovascular: RRR, no significant murmur, no rub Gastrointestinal: soft, non-tender, no distention, positive bowel sounds Musculoskeletal: no edema, pulses present Skin: no rash, normal turgor Dx/Plan (1) GLORIA (acute kidney injury) Code(s): N17.9 - ACUTE KIDNEY FAILURE, UNSPECIFIED Status: Acute Comment: Likely pre-renal 2/2 poor PO intake. Will give a bolus of normal saline. (2) Ischemic stroke Code(s): I63.9 - CEREBRAL INFARCTION, UNSPECIFIED Status: Acute Comment: Stable. Continue ASA and Statins. (3) Chronic alcohol abuse Code(s): F10.10 - ALCOHOL ABUSE, UNCOMPLICATED Status: Chronic Comment: Stable. No signs of withdrawal. (4) Hypertension Code(s): I10 - ESSENTIAL (PRIMARY) HYPERTENSION Status: Chronic Qualifiers: Hypertension type: essential hypertension Qualified Code(s): I10 - Essential (primary) hypertension Comment: Controlled and at goal. (5) Paroxysmal A-fib Code(s): I48.0 - PAROXYSMAL ATRIAL FIBRILLATION Status: Chronic Comment: Rate controlled. Asymptomatic. On ASA but probably not an anticoag candidate for now. (6) Thrombocytopenia Code(s): D69.6 - THROMBOCYTOPENIA, UNSPECIFIED Status: Chronic Comment: Stable. No signs of acute bleeding. Continue SCDs. (7) Hypokalemia Code(s): E87.6 - HYPOKALEMIA Status: Acute - Plan cont current plan of care, PT/OT, director social, out of bed/ambulate disability manager on board. Has referred patient to rehabilitation facilities. Awaiting response. f/u cardiology recommendations. Review of Systems - Medications/Allergies Allergies/Adverse Reactions: Allergies Allergy/AdvReac Type Severity Reaction Status Date / Time No Known Allergies Allergy Unverified 05/22/17 17:13 Medications: Current Medications Acetaminophen (Tylenol) 650 mg PO Q4H PRN PRN Reason: Headache/Fever or Pain Aspirin (Aspirin) 325 mg PO DAILY [facility] Last Admin: 05/04/18 09:10 Dose: 325 mg Atorvastatin Calcium (Lipitor) 40 mg PO HS [facility] Last Admin: 05/03/18 20:36 Dose: 40 mg Clonidine (Catapres) 0.1 mg PO Q4H PRN PRN Reason: SBP > 180 Last Admin: 04/29/18 03:39 Dose: 0.1 mg Diltiazem HCl (Cardizem Cd) 120 mg PO DAILY [facility] Last Admin: 05/04/18 09:10 Dose: 120 mg Docusate Sodium (Colace) 100 mg PO BID [facility] Last Admin: 05/04/18 09:10 Dose: 100 mg Folic Acid (Folvite) 1 mg PO DAILY [facility] Last Admin: 05/04/18 09:11 Dose: 1 mg Hydralazine HCl (Apresoline) 10 mg SLOW IVP Q4H PRN PRN Reason: Hypertension Iron/Minerals/Multivitamins (Theragran M) 1 tab PO DAILY [facility] Last Admin: 05/04/18 09:11 Dose: 1 tab Labetalol HCl (Normodyne) 10 mg SLOW IVP Q4H PRN PRN Reason: SBP Greater Than 180 Last Admin: 04/28/18 17:08 Dose: 2 ml Lorazepam (Ativan) 1 mg PO Q4H PRN PRN Reason: ASE >=9 Magnesium Hydroxide (Milk Of Magnesium) 30 ml PO DAILYPRN PRN PRN Reason: Constipation Magnesium Oxide (Magnesium Oxide) 400 mg PO BID [facility] Last Admin: 05/04/18 09:11 Dose: 400 mg Potassium Chloride (K-Dur) 20 meq PO QAM-WM [facility] Last Admin: 05/04/18 09:10 Dose: 20 meq Propranolol HCl (Inderal La) 80 mg PO DAILY [facility] Last Admin: 05/04/18 09:11 Dose: 80 mg Quetiapine Fumarate (Seroquel) 300 mg PO HS [facility] Last Admin: 05/03/18 20:36 Dose: 300 mg Thiamine HCl (Thiamine) 100 mg PO DAILY [facility] Last Admin: 05/04/18 09:11 Dose: 100 mg
[2018-05-04] MEDS ORDERED: Sodium Chloride 0.45% 1,000 ML IV SCH (16:30)
[2018-05-04] MEDS: Atorvastatin Calcium 40 MG TAB PO SCH (20:26)
--- NOTE | 2018-05-05 01:32 | CON ---
DATE OF CONSULTATION: 05/04/2018 REASON FOR CONSULTATION: Atrial fibrillation with stroke. HISTORY OF PRESENT ILLNESS: Mr. Matthias Anne is a 73-year-old man. He presented to the hospital afte r being brought to this institution, after being found down by the side of the road. Apparently, brenda eone found in part by the side of the road, he is confused and disoriented. EMS was called. Blood p ressure was 200/130. The patient was brought to this institution, where he was found to have had a s troke. He also is in atrial fibrillation. The patient does not recall any of this. PAST MEDICAL HISTORY: 1. Hypertension. 2. Hyperlipidemia. 3. Chronic alcoholism. 4. The patient states he saw Dr. Schwarz, but does not know the reason. HOME MEDICATIONS: 1. Bupropion. 2. Digoxin. 3. Diltiazem. 4. Midodrine. 5. Seroquel. PAST SURGICAL HISTORY: Unknown. FAMILY HISTORY: Unclear. SOCIAL HISTORY: States drinks whiskey on a daily basis. ALLERGIES: None known. REVIEW OF SYSTEMS: Not reliable. PHYSICAL EXAMINATION: GENERAL: It is a pleasant gentleman, still does not know where he is. VITAL SIGNS: His blood pressure 137/66; pulse 70s, irregular. HEENT: Eyes, sclerae nonicteric. Mouth mucous membranes moist. NECK: Supple, no lymphadenopathy. LUNGS: Clear. CARDIAC: Irregularly irregular. ABDOMEN: Soft, nontender. EXTREMITIES: No clubbing or cyanosis. There is no edema. Peripheral pulses seem diminished. PERTINENT LABORATORY DATA: The MCV is 104. Potassium is 4.1, creatinine 1.52, alcohol level was les s than 10 on the . Brain MRI on the revealed large right acute posterior circulation infarc t. Echocardiogram revealed ejection fraction 55-60%, mild left atrial enlargement. EKG reveals atrial f ibrillation, did have 1 episode of accelerated idioventricular rhythm this morning. ASSESSMENT: 1. Alcoholism. The patient states he drinks whiskey on a daily basis. 2. Atrial fibrillation, suspect chronic. 3. Stroke, probably cardioembolic. 4. Unfortunately poor candidate for anticoagulation with alcoholism. PLAN: 1. Agree with stopping digoxin. 2. Echocardiogram was done. 3. If the patient's situation improved in terms of mental status, consideration could be given antic oagulation, but unfortunately, with his alcoholism, the risk of bleeding is substantially high. Unfo rtunately, prognosis is poor in general with this constellation of problems. 4. We are trying to obtain records from Dr. Schwarz's office. The patient states he is the patient o f Dr. Schwarz.
[2018-05-05 06:01] LABS: Anion Gap 12 mmol/L (10-20); BUN (Urea Nitrogen) 30 mg/dL (8.4-25.7); Calc. Creatinine Clearance 61 mL/min (70-130); Calcium 10.2 mg/dL (7.8-10.44); Carbon Dioxide 27 mmol/L (23-31); Chloride 103 mmol/L (98-107); Estimated GFR-MDRD 51; Glucose 100 mg/dL (83-110); Potassium 4.3 mmol/L (3.5-5.1); Sodium 138 mmol/L (136-145)
[2018-05-05 06:53] LABS: Mean Corpuscular HGB CONC 30.7 g/dL (32.0-36.0); Mean Corpuscular Hemoglobin 32.2 pg (27.0-31.0); Mean Platelet Volume 10.2 fL (7.4-10.4); Platelet Count 85 thou/uL (130-400); RBC Distribution Width 12.4 % (11.5-14.5); Red Blood Cell (RBC) Count 4.97 mill/uL (4.70-6.10); White Blood Cell (WBC) Count 7.1 thou/uL (4.8-10.8)
[2018-05-05] MEDS ORDERED: Sodium Chloride 0.9% 1,000 ML IV SCH (07:30)
--- NOTE | 2018-05-05 08:55 | PDOC.PN ---
- Subjective Encounter Start Date: 05/05/18 Encounter Start Time: 08:54 Patient seen and examined. He has a h/o chronic alcohol abuse and HTN and was found parked on [address], confused and disoriented. 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 No complaints today and reports feeling well. He has a new anterograde amnesia. No acute events overnight. He is medically stable and awaiting possible placement. CM on board. - Objective Vital Signs & Weight: Vital Signs (12 hours) Temp Pulse Resp BP Pulse Ox 05/05/18 07:53 97.8 F 70 16 139/74 96 05/05/18 04:00 97.5 F L 71 18 138/65 97 05/05/18 00:00 97.5 F L 74 18 135/63 94 L Weight Admit Weight 194 lb 3.636 oz Weight 194 lb 3.636 oz Result Diagrams: 05/05/18 05:29 05/05/18 05:29 Phys Exam - Physical Examination Constitutional: NAD HEENT: moist MMs, sclera anicteric Neck: supple, full ROM Respiratory: no wheezing, no rales, no rhonchi, clear to auscultation bilateral Cardiovascular: RRR, no significant murmur, no rub Gastrointestinal: soft, non-tender, no distention, positive bowel sounds Musculoskeletal: no edema Neurological: non-focal, moves all 4 limbs Skin: no rash, normal turgor Dx/Plan (1) GLORIA (acute kidney injury) Code(s): N17.9 - ACUTE KIDNEY FAILURE, UNSPECIFIED Status: Acute Comment: Improving. Likely pre-renal 2/2 poor PO intake. He received a bolus of normal saline. Will encourage increased PO intake. (2) Ischemic stroke Code(s): I63.9 - CEREBRAL INFARCTION, UNSPECIFIED Status: Acute Comment: Stable. Continue ASA and Statins. (3) Chronic alcohol abuse Code(s): F10.10 - ALCOHOL ABUSE, UNCOMPLICATED Status: Chronic Comment: Stable. No signs of withdrawal. (4) Hypertension Code(s): I10 - ESSENTIAL (PRIMARY) HYPERTENSION Status: Chronic Qualifiers: Hypertension type: essential hypertension Qualified Code(s): I10 - Essential (primary) hypertension Comment: Controlled and at goal. (5) Paroxysmal A-fib Code(s): I48.0 - PAROXYSMAL ATRIAL FIBRILLATION Status: Chronic Comment: Rate controlled. Asymptomatic. On ASA but probably not an anticoag candidate for now. (6) Thrombocytopenia Code(s): D69.6 - THROMBOCYTOPENIA, UNSPECIFIED Status: Chronic Comment: Stable. No signs of acute bleeding. Continue SCDs. (7) Hypokalemia Code(s): E87.6 - HYPOKALEMIA Status: Resolved - Plan * . Review of Systems - Medications/Allergies Allergies/Adverse Reactions: Allergies Allergy/AdvReac Type Severity Reaction Status Date / Time No Known Allergies Allergy Unverified 05/22/17 17:13 Medications: Current Medications Acetaminophen (Tylenol) 650 mg PO Q4H PRN PRN Reason: Headache/Fever or Pain Aspirin (Aspirin) 325 mg PO DAILY [facility] Last Admin: 05/04/18 09:10 Dose: 325 mg Atorvastatin Calcium (Lipitor) 40 mg PO HS [facility] Last Admin: 05/04/18 20:26 Dose: 40 mg Clonidine (Catapres) 0.1 mg PO Q4H PRN PRN Reason: SBP > 180 Last Admin: 04/29/18 03:39 Dose: 0.1 mg Diltiazem HCl (Cardizem Cd) 120 mg PO DAILY [facility] Last Admin: 05/04/18 09:10 Dose: 120 mg Docusate Sodium (Colace) 100 mg PO BID [facility] Last Admin: 05/04/18 20:26 Dose: 100 mg Folic Acid (Folvite) 1 mg PO DAILY [facility] Last Admin: 05/04/18 09:11 Dose: 1 mg Hydralazine HCl (Apresoline) 10 mg SLOW IVP Q4H PRN PRN Reason: Hypertension Sodium Chloride (Normal Saline 0.9%) 1,000 mls @ 75 mls/hr IV .[id number] [facility] Stop: 05/05/18 20:49 Iron/Minerals/Multivitamins (Theragran M) 1 tab PO DAILY [facility] Last Admin: 05/04/18 09:11 Dose: 1 tab Labetalol HCl (Normodyne) 10 mg SLOW IVP Q4H PRN PRN Reason: SBP Greater Than 180 Last Admin: 04/28/18 17:08 Dose: 2 ml Lorazepam (Ativan) 1 mg PO Q4H PRN PRN Reason: ASE >=9 Magnesium Hydroxide (Milk Of Magnesium) 30 ml PO DAILYPRN PRN PRN Reason: Constipation Magnesium Oxide (Magnesium Oxide) 400 mg PO BID [facility] Last Admin: 05/04/18 20:26 Dose: 400 mg Potassium Chloride (K-Dur) 20 meq PO QAM-WM [facility] Last Admin: 05/04/18 09:10 Dose: 20 meq Propranolol HCl (Inderal La) 80 mg PO DAILY [facility] Last Admin: 05/04/18 09:11 Dose: 80 mg Quetiapine Fumarate (Seroquel) 300 mg PO HS [facility] Last Admin: 05/04/18 20:26 Dose: 300 mg Sodium Chloride (Flush - Normal Saline) 10 ml IVF Q12HR [facility] Sodium Chloride (Flush - Normal Saline) 10 ml IVF PRN PRN PRN Reason: Saline Flush Thiamine HCl (Thiamine) 100 mg PO DAILY [facility] Last Admin: 05/04/18 09:11 Dose: 100 mg
[2018-05-05] MEDS: Aspirin 325 MG TAB PO SCH (08:56)
[2018-05-05] MEDS: Docusate 100 MG CAP PO SCH ×2 (08:58→20:45)
[2018-05-05] MEDS: Folic Acid 1 MG TAB PO SCH (08:59)
[2018-05-05] MEDS: Magnesium Oxide 400 MG TAB PO SCH ×2 (08:59→20:45)
[2018-05-05] MEDS: Propranolol HCl LA 80 MG CAP PO SCH (09:00)
[2018-05-05] MEDS: Multivitamin W/ Minerals 1 TAB PO SCH (09:00)
[2018-05-05] MEDS: Potassium Chloride 20 MEQ TAB PO SCH (09:06)
[2018-05-05] MEDS: Atorvastatin Calcium 40 MG TAB PO SCH (20:45)
[2018-05-06] MEDS: Folic Acid 1 MG TAB PO SCH (09:32)
[2018-05-06] MEDS: Aspirin 325 MG TAB PO SCH (09:32)
[2018-05-06] MEDS: Docusate 100 MG CAP PO SCH (09:32)
[2018-05-06] MEDS: Magnesium Oxide 400 MG TAB PO SCH (09:32)
[2018-05-06] MEDS: Multivitamin W/ Minerals 1 TAB PO SCH (09:32)
[2018-05-06] MEDS: Propranolol HCl LA 80 MG CAP PO SCH (09:32)
--- NOTE | 2018-05-06 11:10 | PDOC.PN ---
- Subjective Encounter Start Date: 05/06/18 Encounter Start Time: 11:06 Patient seen and examined. He has a h/o chronic alcohol abuse and HTN and was found parked on [address], confused and disoriented. 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 No complaints today and reports feeling well. He has a new anterograde amnesia. No acute events overnight. He is medically stable and awaiting placement. CM on board. - Objective MAR Reviewed: Yes Vital Signs & Weight: Vital Signs (12 hours) Temp Pulse Resp BP BP Pulse Ox 05/06/18 09:32 83 05/06/18 08:00 98.6 F 83 16 05/06/18 07:46 98.6 F 83 16 146/63 H 95 05/06/18 04:35 97.5 F L 66 18 148/69 H 93 L 05/05/18 23:45 97.7 F 66 20 148/75 H 96 Weight Admit Weight 194 lb 3.636 oz Weight 194 lb 3.636 oz Result Diagrams: 05/05/18 05:29 05/05/18 05:29 Phys Exam - Physical Examination Constitutional: NAD HEENT: moist MMs, sclera anicteric Neck: no JVD, supple, full ROM Respiratory: no wheezing, no rales, no rhonchi, clear to auscultation bilateral Cardiovascular: RRR, no significant murmur, no rub Gastrointestinal: soft, non-tender, no distention, positive bowel sounds Musculoskeletal: no edema, pulses present Neurological: non-focal, normal sensation, moves all 4 limbs Skin: no rash, normal turgor Dx/Plan (1) GLORIA (acute kidney injury) Code(s): N17.9 - ACUTE KIDNEY FAILURE, UNSPECIFIED Status: Acute Comment: Improving. Likely pre-renal 2/2 poor PO intake. Encouraged on increased PO intake. (2) Ischemic stroke Code(s): I63.9 - CEREBRAL INFARCTION, UNSPECIFIED Status: Acute Comment: Stable. Continue ASA and Statins. (3) Chronic alcohol abuse Code(s): F10.10 - ALCOHOL ABUSE, UNCOMPLICATED Status: Chronic Comment: Stable. No signs of withdrawal. (4) Hypertension Code(s): I10 - ESSENTIAL (PRIMARY) HYPERTENSION Status: Chronic Qualifiers: Hypertension type: essential hypertension Qualified Code(s): I10 - Essential (primary) hypertension Comment: Controlled and at goal. (5) Paroxysmal A-fib Code(s): I48.0 - PAROXYSMAL ATRIAL FIBRILLATION Status: Chronic Comment: Rate controlled. Asymptomatic. On ASA. Not a candidate for anticoagulation 2/2 alcoholism. (6) Thrombocytopenia Code(s): D69.6 - THROMBOCYTOPENIA, UNSPECIFIED Status: Chronic Comment: Stable. No signs of acute bleeding. Continue SCDs. (7) Hypokalemia Code(s): E87.6 - HYPOKALEMIA Status: Resolved - Plan cont current plan of care, plan discussed w/ family, PT/OT, high school social studies tutor, speech therapy, out of bed/ambulate, DVT proph w/SCDs * . Review of Systems - Medications/Allergies Allergies/Adverse Reactions: Allergies Allergy/AdvReac Type Severity Reaction Status Date / Time No Known Allergies Allergy Unverified 05/22/17 17:13 Medications: Current Medications Acetaminophen (Tylenol) 650 mg PO Q4H PRN PRN Reason: Headache/Fever or Pain Aspirin (Aspirin) 325 mg PO DAILY [facility] Last Admin: 05/06/18 09:32 Dose: 325 mg Atorvastatin Calcium (Lipitor) 40 mg PO HS [facility] Last Admin: 05/05/18 20:45 Dose: 40 mg Clonidine (Catapres) 0.1 mg PO Q4H PRN PRN Reason: SBP > 180 Last Admin: 04/29/18 03:39 Dose: 0.1 mg Diltiazem HCl (Cardizem Cd) 120 mg PO DAILY [facility] Last Admin: 05/06/18 09:32 Dose: 120 mg Docusate Sodium (Colace) 100 mg PO BID [facility] Last Admin: 05/06/18 09:32 Dose: 100 mg Folic Acid (Folvite) 1 mg PO DAILY [facility] Last Admin: 05/06/18 09:32 Dose: 1 mg Hydralazine HCl (Apresoline) 10 mg SLOW IVP Q4H PRN PRN Reason: Hypertension Iron/Minerals/Multivitamins (Theragran M) 1 tab PO DAILY [facility] Last Admin: 05/06/18 09:32 Dose: 1 tab Labetalol HCl (Normodyne) 10 mg SLOW IVP Q4H PRN PRN Reason: SBP Greater Than 180 Last Admin: 04/28/18 17:08 Dose: 2 ml Lorazepam (Ativan) 1 mg PO Q4H PRN PRN Reason: ASE >=9 Magnesium Hydroxide (Milk Of Magnesium) 30 ml PO DAILYPRN PRN PRN Reason: Constipation Magnesium Oxide (Magnesium Oxide) 400 mg PO BID [facility] Last Admin: 05/06/18 09:32 Dose: 400 mg Pantoprazole Sodium (Protonix) 40 mg PO DAILY [facility] Last Admin: 05/06/18 09:32 Dose: 40 mg Propranolol HCl (Inderal La) 80 mg PO DAILY [facility] Last Admin: 05/06/18 09:32 Dose: 80 mg Quetiapine Fumarate (Seroquel) 300 mg PO HS [facility] Last Admin: 05/05/18 20:49 Dose: 300 mg Sodium Chloride (Flush - Normal Saline) 10 ml IVF Q12HR [facility] Last Admin: 05/06/18 09:36 Dose: 10 ml Sodium Chloride (Flush - Normal Saline) 10 ml IVF PRN PRN PRN Reason: Saline Flush Thiamine HCl (Thiamine) 100 mg PO DAILY [facility] Last Admin: 05/06/18 09:32 Dose: 100 mg
--- NOTE | 2018-05-06 13:24 | RAD ---
CHEST ONE VIEW: HISTORY: Chest pain. COMPARISON: None. FINDINGS: The cardiac silhouette is magnified by projection and is at the upper limits of normal in size. The pulmonary vasculature are unremarkable. The mediastinum is midline with aortic calcification. Calci fied granulomata are consistent with healed granulomatous disease. No lobar consolidation or evidenc e of pneumothorax. IMPRESSION: 1. Borderline cardiomegaly. 2. Atherosclerosis. 3. No evidence of consolidation or cavitations. POS: H
[2018-05-07] MEDS: Magnesium Oxide 400 MG TAB PO SCH ×3 (07:32→20:13)
[2018-05-07] MEDS: Atorvastatin Calcium 40 MG TAB PO SCH ×2 (07:32→20:13)
[2018-05-07] MEDS: Docusate 100 MG CAP PO SCH ×3 (07:32→20:13)
[2018-05-07] MEDS: Aspirin 325 MG TAB PO SCH (09:18)
[2018-05-07] MEDS: Multivitamin W/ Minerals 1 TAB PO SCH (09:19)
[2018-05-07] MEDS: Propranolol HCl LA 80 MG CAP PO SCH (09:20)
[2018-05-07] MEDS: Folic Acid 1 MG TAB PO SCH (09:20)
--- NOTE | 2018-05-07 13:01 | PDOC.PN ---
- Subjective Encounter Start Date: 05/07/18 Encounter Start Time: 13:00 Patient seen and examined. He has a h/o chronic alcohol abuse and HTN and was found parked on [address], confused and disoriented. 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 No complaints today and reports feeling well. He has a new anterograde amnesia. No acute events overnight. He is medically stable and awaiting placement. CM on board. - Objective MAR Reviewed: Yes Vital Signs & Weight: Vital Signs (12 hours) Temp Pulse Resp BP BP Pulse Ox 05/07/18 11:30 97.6 F 76 12 158/82 H 96 05/07/18 08:00 97.7 F 72 16 05/07/18 06:58 97.7 F 72 16 153/77 H 94 L 05/07/18 03:55 98.2 F 66 20 131/67 95 Weight Admit Weight 194 lb 3.636 oz Weight 194 lb 3.636 oz I&O: 05/06/18 05/07/18 05/08/18 06:59 06:59 06:59 Intake Total 480 Balance 480 Result Diagrams: 05/05/18 05:29 05/05/18 05:29 Phys Exam - Physical Examination Constitutional: NAD HEENT: moist MMs, sclera anicteric Neck: supple, full ROM Respiratory: no wheezing, no rales, no rhonchi, clear to auscultation bilateral Cardiovascular: RRR, no significant murmur, no rub Gastrointestinal: soft, non-tender, no distention, positive bowel sounds Musculoskeletal: no edema, pulses present Neurological: non-focal, moves all 4 limbs Skin: no rash, normal turgor Dx/Plan (1) GLORIA (acute kidney injury) Code(s): N17.9 - ACUTE KIDNEY FAILURE, UNSPECIFIED Status: Acute Comment: Likely pre-renal 2/2 poor PO intake. Encouraged on increased PO intake. (2) Ischemic stroke Code(s): I63.9 - CEREBRAL INFARCTION, UNSPECIFIED Status: Acute Comment: Stable. Continue ASA and Statins. (3) Chronic alcohol abuse Code(s): F10.10 - ALCOHOL ABUSE, UNCOMPLICATED Status: Chronic Comment: Stable. No signs of withdrawal. (4) Hypertension Code(s): I10 - ESSENTIAL (PRIMARY) HYPERTENSION Status: Chronic Qualifiers: Hypertension type: essential hypertension Qualified Code(s): I10 - Essential (primary) hypertension Comment: Controlled and at goal. (5) Paroxysmal A-fib Code(s): I48.0 - PAROXYSMAL ATRIAL FIBRILLATION Status: Chronic Comment: Rate controlled. Asymptomatic. On ASA. Not a candidate for anticoagulation 2/2 alcoholism. (6) Thrombocytopenia Code(s): D69.6 - THROMBOCYTOPENIA, UNSPECIFIED Status: Chronic Comment: Stable. No signs of acute bleeding. Continue SCDs. (7) Hypokalemia Code(s): E87.6 - HYPOKALEMIA Status: Resolved - Plan cont current plan of care, PT/OT, public health social worker, out of bed/ambulate, DVT proph w/SCDs Awaiting placement. Review of Systems - Medications/Allergies Allergies/Adverse Reactions: Allergies Allergy/AdvReac Type Severity Reaction Status Date / Time No Known Allergies Allergy Unverified 05/22/17 17:13 Medications: Current Medications Acetaminophen (Tylenol) 650 mg PO Q4H PRN PRN Reason: Headache/Fever or Pain Aspirin (Aspirin) 325 mg PO DAILY [facility] Last Admin: 05/07/18 09:18 Dose: 325 mg Atorvastatin Calcium (Lipitor) 40 mg PO HS [facility] Last Admin: 05/07/18 07:32 Dose: Not Given Clonidine (Catapres) 0.1 mg PO Q4H PRN PRN Reason: SBP > 180 Last Admin: 04/29/18 03:39 Dose: 0.1 mg Diltiazem HCl (Cardizem Cd) 120 mg PO DAILY [facility] Last Admin: 05/07/18 09:18 Dose: 120 mg Docusate Sodium (Colace) 100 mg PO BID [facility] Last Admin: 05/07/18 09:19 Dose: 100 mg Folic Acid (Folvite) 1 mg PO DAILY [facility] Last Admin: 05/07/18 09:20 Dose: 1 mg Hydralazine HCl (Apresoline) 10 mg SLOW IVP Q4H PRN PRN Reason: Hypertension Iron/Minerals/Multivitamins (Theragran M) 1 tab PO DAILY [facility] Last Admin: 05/07/18 09:19 Dose: 1 tab Labetalol HCl (Normodyne) 10 mg SLOW IVP Q4H PRN PRN Reason: SBP Greater Than 180 Last Admin: 04/28/18 17:08 Dose: 2 ml Lorazepam (Ativan) 1 mg PO Q4H PRN PRN Reason: ASE >=9 Magnesium Hydroxide (Milk Of Magnesium) 30 ml PO DAILYPRN PRN PRN Reason: Constipation Magnesium Oxide (Magnesium Oxide) 400 mg PO BID [facility] Last Admin: 05/07/18 09:20 Dose: 400 mg Pantoprazole Sodium (Protonix) 40 mg PO DAILY [facility] Last Admin: 05/07/18 09:19 Dose: 40 mg Propranolol HCl (Inderal La) 80 mg PO DAILY [facility] Last Admin: 05/07/18 09:20 Dose: 80 mg Quetiapine Fumarate (Seroquel) 300 mg PO HS [facility] Last Admin: 05/07/18 07:33 Dose: Not Given Sodium Chloride (Flush - Normal Saline) 10 ml IVF Q12HR [facility] Last Admin: 05/07/18 09:21 Dose: Not Given Sodium Chloride (Flush - Normal Saline) 10 ml IVF PRN PRN PRN Reason: Saline Flush Thiamine HCl (Thiamine) 100 mg PO DAILY [facility] Last Admin: 05/07/18 09:20 Dose: 100 mg
[2018-05-08 05:34] LABS: Hemoglobin 15.4 g/dL (14.0-18.0); Mean Corpuscular Hemoglobin 32.8 pg (27.0-31.0); Mean Platelet Volume 9.5 fL (7.4-10.4); Platelet Count 131 thou/uL (130-400); RBC Distribution Width 11.9 % (11.5-14.5); Red Blood Cell (RBC) Count 4.71 mill/uL (4.70-6.10); White Blood Cell (WBC) Count 6.3 thou/uL (4.8-10.8)
[2018-05-08 05:41] LABS: Anion Gap 13 mmol/L (10-20); BUN (Urea Nitrogen) 24 mg/dL (8.4-25.7); Calc. Creatinine Clearance 65 mL/min (70-130); Calcium 10.1 mg/dL (7.8-10.44); Carbon Dioxide 27 mmol/L (23-31); Chloride 102 mmol/L (98-107); Estimated GFR-MDRD 55; Glucose 101 mg/dL (83-110); Potassium 3.9 mmol/L (3.5-5.1); Sodium 138 mmol/L (136-145)
[2018-05-08] MEDS: Multivitamin W/ Minerals 1 TAB PO SCH (08:36)
[2018-05-08] MEDS: Magnesium Oxide 400 MG TAB PO SCH ×2 (08:36→20:52)
[2018-05-08] MEDS: Folic Acid 1 MG TAB PO SCH (08:36)
[2018-05-08] MEDS: Aspirin 325 MG TAB PO SCH (08:37)
[2018-05-08] MEDS: Propranolol HCl LA 80 MG CAP PO SCH (08:37)
[2018-05-08] MEDS: Docusate 100 MG CAP PO SCH ×2 (08:37→20:52)
--- NOTE | 2018-05-08 09:56 | PDOC.PN ---
- Subjective Encounter Start Date: 05/08/18 Encounter Start Time: 09:55 Patient seen and examined. He has a h/o chronic alcohol abuse and HTN and was found parked on [address], confused and disoriented. 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 No complaints today and reports feeling well. He has a new anterograde amnesia. No acute events overnight. He is medically stable and awaiting placement. CM on board. - Objective MAR Reviewed: Yes Vital Signs & Weight: Vital Signs (12 hours) Temp Pulse Resp BP BP Pulse Ox 05/08/18 08:40 97.6 F 83 16 98 05/08/18 08:36 83 143/87 H 05/08/18 07:45 97.6 F 83 16 143/87 H 98 05/08/18 04:00 97.8 F 62 18 134/66 97 05/08/18 00:00 97.9 F 75 18 144/80 H 98 Weight Admit Weight 194 lb 3.636 oz Weight 194 lb 3.636 oz I&O: 05/07/18 05/08/18 05/09/18 06:59 06:59 06:59 Intake Total 0 Balance 2040 Result Diagrams: 05/08/18 05:00 05/08/18 05:00 Phys Exam - Physical Examination Constitutional: NAD HEENT: moist MMs, sclera anicteric Neck: supple, full ROM Respiratory: no wheezing, no rales, no rhonchi, clear to auscultation bilateral Cardiovascular: RRR, no significant murmur, no rub Gastrointestinal: soft, non-tender, no distention, positive bowel sounds Musculoskeletal: no edema, pulses present Neurological: non-focal, moves all 4 limbs Skin: no rash, normal turgor Dx/Plan (1) Ischemic stroke Code(s): I63.9 - CEREBRAL INFARCTION, UNSPECIFIED Status: Acute Comment: Stable. Continue ASA and Statins. (2) Paroxysmal A-fib Code(s): I48.0 - PAROXYSMAL ATRIAL FIBRILLATION Status: Chronic Comment: Rate controlled. Asymptomatic. On ASA and Diltiazem. Not a candidate for anticoagulation 2/2 alcoholism. (3) Hypertension Code(s): I10 - ESSENTIAL (PRIMARY) HYPERTENSION Status: Chronic Qualifiers: Hypertension type: essential hypertension Qualified Code(s): I10 - Essential (primary) hypertension Comment: Controlled and at goal. (4) Chronic alcohol abuse Code(s): F10.10 - ALCOHOL ABUSE, UNCOMPLICATED Status: Chronic Comment: Stable. No signs of withdrawal. (5) Thrombocytopenia Code(s): D69.6 - THROMBOCYTOPENIA, UNSPECIFIED Status: Chronic Comment: Improving. No signs of acute bleeding. Continue SCDs. (6) Hypokalemia Code(s): E87.6 - HYPOKALEMIA Status: Resolved (7) GLORIA (acute kidney injury) Code(s): N17.9 - ACUTE KIDNEY FAILURE, UNSPECIFIED Status: Resolved Comment : Likely pre-renal 2/2 poor PO intake. Encouraged on increased PO intake. - Plan cont current plan of care, plan discussed w/ family, PT/OT, social media manager, speech therapy, out of bed/ambulate, DVT proph w/SCDs Discharge scheduled for Thursday Continue current management. Review of Systems - Medications/Allergies Allergies/Adverse Reactions: Allergies Allergy/AdvReac Type Severity Reaction Status Date / Time No Known Allergies Allergy Unverified 05/22/17 17:13 Medications: Current Medications Acetaminophen (Tylenol) 650 mg PO Q4H PRN PRN Reason: Headache/Fever or Pain Aspirin (Aspirin) 325 mg PO DAILY [facility] Last Admin: 05/08/18 08:37 Dose: 325 mg Atorvastatin Calcium (Lipitor) 40 mg PO HS [facility] Last Admin: 05/07/18 20:13 Dose: 40 mg Clonidine (Catapres) 0.1 mg PO Q4H PRN PRN Reason: SBP > 180 Last Admin: 04/29/18 03:39 Dose: 0.1 mg Diltiazem HCl (Cardizem Cd) 120 mg PO DAILY [facility] Last Admin: 05/08/18 08:36 Dose: 120 mg Docusate Sodium (Colace) 100 mg PO BID [facility] Last Admin: 05/08/18 08:37 Dose: 100 mg Folic Acid (Folvite) 1 mg PO DAILY [facility] Last Admin: 05/08/18 08:36 Dose: 1 mg Hydralazine HCl (Apresoline) 10 mg SLOW IVP Q4H PRN PRN Reason: Hypertension Iron/Minerals/Multivitamins (Theragran M) 1 tab PO DAILY [facility] Last Admin: 05/08/18 08:36 Dose: 1 tab Labetalol HCl (Normodyne) 10 mg SLOW IVP Q4H PRN PRN Reason: SBP Greater Than 180 Last Admin: 04/28/18 17:08 Dose: 2 ml Lorazepam (Ativan) 1 mg PO Q4H PRN PRN Reason: ASE >=9 Magnesium Hydroxide (Milk Of Magnesium) 30 ml PO DAILYPRN PRN PRN Reason: Constipation Magnesium Oxide (Magnesium Oxide) 400 mg PO BID [facility] Last Admin: 05/08/18 08:36 Dose: 400 mg Pantoprazole Sodium (Protonix) 40 mg PO DAILY [facility] Last Admin: 05/08/18 08:36 Dose: 40 mg Propranolol HCl (Inderal La) 80 mg PO DAILY [facility] Last Admin: 05/08/18 08:37 Dose: 80 mg Quetiapine Fumarate (Seroquel) 300 mg PO HS [facility] Last Admin: 05/07/18 20:13 Dose: 300 mg Sodium Chloride (Flush - Normal Saline) 10 ml IVF Q12HR [facility] Last Admin: 05/08/18 08:37 Dose: Not Given Sodium Chloride (Flush - Normal Saline) 10 ml IVF PRN PRN PRN Reason: Saline Flush Thiamine HCl (Thiamine) 100 mg PO DAILY [facility] Last Admin: 05/08/18 08:36 Dose: 100 mg
[2018-05-08] MEDS: Atorvastatin Calcium 40 MG TAB PO SCH (20:52)
[2018-05-09] MEDS: Aspirin 325 MG TAB PO SCH (09:43)
[2018-05-09] MEDS: Folic Acid 1 MG TAB PO SCH (09:44)
[2018-05-09] MEDS: Propranolol HCl LA 80 MG CAP PO SCH (09:44)
[2018-05-09] MEDS: Multivitamin W/ Minerals 1 TAB PO SCH (09:44)
[2018-05-09] MEDS: Magnesium Oxide 400 MG TAB PO SCH ×2 (09:44→20:24)
[2018-05-09] MEDS: Docusate 100 MG CAP PO SCH ×2 (09:44→20:24)
--- NOTE | 2018-05-09 13:45 | PDOC.PN ---
- Subjective Encounter Start Date: 05/09/18 Encounter Start Time: 07:20 Pt seen for followup re: ischemic CVA. Denies chest pain, shortness of breath, fevers or chills. - Objective MAR Reviewed: Yes Vital Signs & Weight: Vital Signs (12 hours) Temp Pulse Resp BP BP Pulse Ox 05/09/18 11:56 97.7 F 81 18 140/74 96 05/09/18 09:43 73 141/81 H 05/09/18 08:00 97.7 F 81 18 141/81 H 95 05/09/18 04:00 97.3 F L 66 18 153/75 H 95 Weight Admit Weight 194 lb 3.636 oz Weight 194 lb 3.636 oz I&O: 05/08/18 05/09/18 05/10/18 06:59 06:59 06:59 Intake Total 0 1195 Balance 2040 1195 Result Diagrams: 05/08/18 05:00 05/08/18 05:00 Additional Labs: Labs reviewed by me Phys Exam - Physical Examination Constitutional: NAD HEENT: moist MMs Neck: supple Respiratory: clear to auscultation bilateral Cardiovascular: RRR Gastrointestinal: soft Neurological: moves all 4 limbs Psychiatric: normal affect Dx/Plan (1) Ischemic stroke Code(s): I63.9 - CEREBRAL INFARCTION, UNSPECIFIED Status: Acute Comment: Continue aspirin and statin (2) Hypertension Code(s): I10 - ESSENTIAL (PRIMARY) HYPERTENSION Status: Chronic Qualifiers: Hypertension type: essential hypertension Qualified Code(s): I10 - Essential (primary) hypertension Comment: controlled (3) Paroxysmal A-fib Code(s): I48.0 - PAROXYSMAL ATRIAL FIBRILLATION Status: Chronic Comment: Rate controlled. - Plan * . Review of Systems - Review of Systems Respiratory: negative: Cough, Shortness of Breath, SOB with Excertion, Pleuritic Pain, Wheezing Cardiovascular: negative: chest pain, palpitations, orthopnea, paroxysmal nocturnal dyspnea, edema, light headedness - Medications/Allergies Allergies/Adverse Reactions: Allergies Allergy/AdvReac Type Severity Reaction Status Date / Time No Known Allergies Allergy Unverified 05/22/17 17:13 Medications: Current Medications Acetaminophen (Tylenol) 650 mg PO Q4H PRN PRN Reason: Headache/Fever or Pain Aspirin (Aspirin) 325 mg PO DAILY [facility] Last Admin: 05/09/18 09:43 Dose: 325 mg Atorvastatin Calcium (Lipitor) 40 mg PO HS [facility] Last Admin: 05/08/18 20:52 Dose: 40 mg Clonidine (Catapres) 0.1 mg PO Q4H PRN PRN Reason: SBP > 180 Last Admin: 04/29/18 03:39 Dose: 0.1 mg Diltiazem HCl (Cardizem Cd) 120 mg PO DAILY [facility] Last Admin: 05/09/18 09:43 Dose: 120 mg Docusate Sodium (Colace) 100 mg PO BID [facility] Last Admin: 05/09/18 09:44 Dose: 100 mg Folic Acid (Folvite) 1 mg PO DAILY [facility] Last Admin: 05/09/18 09:44 Dose: 1 mg Hydralazine HCl (Apresoline) 10 mg SLOW IVP Q4H PRN PRN Reason: Hypertension Iron/Minerals/Multivitamins (Theragran M) 1 tab PO DAILY [facility] Last Admin: 05/09/18 09:44 Dose: 1 tab Labetalol HCl (Normodyne) 10 mg SLOW IVP Q4H PRN PRN Reason: SBP Greater Than 180 Last Admin: 04/28/18 17:08 Dose: 2 ml Magnesium Hydroxide (Milk Of Magnesium) 30 ml PO DAILYPRN PRN PRN Reason: Constipation Magnesium Oxide (Magnesium Oxide) 400 mg PO BID [facility] Last Admin: 05/09/18 09:44 Dose: 400 mg Pantoprazole Sodium (Protonix) 40 mg PO DAILY [facility] Last Admin: 05/09/18 09:44 Dose: 40 mg Propranolol HCl (Inderal La) 80 mg PO DAILY [facility] Last Admin: 05/09/18 09:44 Dose: 80 mg Quetiapine Fumarate (Seroquel) 300 mg PO HS [facility] Last Admin: 05/08/18 20:52 Dose: 300 mg Sodium Chloride (Flush - Normal Saline) 10 ml IVF Q12HR [facility] Last Admin: 05/09/18 09:45 Dose: Not Given Sodium Chloride (Flush - Normal Saline) 10 ml IVF PRN PRN PRN Reason: Saline Flush Thiamine HCl (Thiamine) 100 mg PO DAILY [facility] Last Admin: 05/09/18 09:45 Dose: 100 mg
[2018-05-09] MEDS: Atorvastatin Calcium 40 MG TAB PO SCH (20:24)
[2018-05-10] MEDS: cloNIDine 0.1 MG TAB PO PRN (00:31)
[2018-05-10] MEDS: Propranolol HCl LA 80 MG CAP PO SCH (08:41)
[2018-05-10] MEDS: Docusate 100 MG CAP PO SCH (08:41)
[2018-05-10] MEDS: Aspirin 325 MG TAB PO SCH (08:41)
[2018-05-10] MEDS: Folic Acid 1 MG TAB PO SCH (08:41)
[2018-05-10] MEDS: Magnesium Oxide 400 MG TAB PO SCH (08:42)
[2018-05-10] MEDS: Multivitamin W/ Minerals 1 TAB PO SCH (08:42)
--- NOTE | 2018-05-10 11:46 | ULT ---
BILATERAL CAROTID DUPLEX ULTRASOUND: HISTORY: CVA. TECHNIQUE: Kruse scale ultrasound with color flow and spectral Doppler imaging of the extracranial carotid artery systems is performed bilaterally. FINDINGS: There is plaque formation on either side. The peak systolic velocity in the right ICA measures 30 cm/s with an end-diastolic velocity of 7 cm/s and a systolic ratio of 0.8. The peak systolic velocity in the left ICA measures 40 cm/s with an end-diastolic velocity of 11 cm/s and a systolic ratio of 0.9. Flow in both vertebral arteries remains antegrade. IMPRESSION: No evidence of hemodynamically significant stenosis. POS: [facility]
[2018-05-10 11:51] VITALS: BP 139/81; TEMP 97.3
--- NOTE | 2018-05-10 21:53 | DIS ---
DATE OF ADMISSION: 04/28/2018 DATE OF DISCHARGE: 05/10/2018 PRIMARY CARE PROVIDER: Ruben. DISCHARGE DIAGNOSES: 1. Ischemic cerebrovascular accident. 2. Demand ischemia. 3. Acute kidney injury. 4. Thrombocytopenia. 5. Paroxysmal atrial fibrillation. 6. Acute encephalopathy. 7. Hypertensive urgency. CONDITION OF THE PATIENT ON THE DAY OF DISCHARGE: Stable. I assessed Mr. Anne on the day of dischar . He denies any chest pain or shortness of breath. Vital signs are stable. S1 and S2 are heard, regular. Lungs are clear to auscultation bilaterally. DISCHARGE MEDICATIONS: Aspirin 325 mg daily, Lipitor 40 mg at bedtime, Cardizem-CD 120 mg daily, fol ic acid 1 mg daily, multivitamins 1 tablet daily, Protonix 40 mg daily, propranolol 80 mg daily, quet iapine 300 mg at bedtime, thiamine 100 mg daily, bupropion 150 mg daily, Aricept 10 mg at bedtime, Vi agra p.r.n. CONSULTATIONS DURING THIS HOSPITALIZATION: 1. Neurology, Dr. Deedee Edwards and Cardiology, Dr. Gonzalez 2. Acute encephalopathy. 3. Hypertensive urgency. HOSPITAL COURSE: Mr. Anne is a pleasant 73-year-old gentleman who was admitted to [facility] on 04/28/2018 for acute encephalopathy and hypertensive urgency. Please refer to Dr. Oliver's history and physical note dated 04/28/2018 for further details. 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 He also had elevated troponins, likely secondary to demand ischemia. He was also found to have atrial fibrillation. A 2D echocardiogram showed left ventricular ejection fraction of 55%-60%, mildly dilated left atrium, moderate mitral regurgitation, sclerotic aortic valve and mild to moderate tricuspid regurgitation. He was seen by Cardiology Service. He was not started on anticoagulation because the risk of bleedin g is substantially high due to his alcoholism. He also had acute renal insufficiency during this hospitalization, which resolved. He also had throm bocytopenia, which resolved. On 05/10/2018, he had carotid Dopplers, which did not show any evidence of hemodynamically significan t stenosis. He is being discharged to assisted living facility. On 05/08/2018, he had normal electrolytes, normal creatinine, normal white count, normal hemoglobin a nd normal platelet count. DISCHARGE DESTINATION: Assisted living facility. TOTAL AMOUNT OF TIME SPENT COORDINATING THIS DISCHARGE: 33 minutes.
== END 2018-05-10 13:55 | DRG 64 ==
LOC: ERS 09:25 → OBSVTOIN 12:50 → 2SE 12:50
PROVIDERS: ADMIT Internal Medicine; ATTEND Internal Medicine
DX: I63.9 Cerebral infarction, unspecified (principal); G93.40 Encephalopathy, unspecified; N17.9 Acute kidney failure, unspecified; I24.8 Other forms of acute ischemic heart disease; I10 Essential (primary) hypertension; I48.0 Paroxysmal atrial fibrillation; D69.6 Thrombocytopenia, unspecified; E87.6 Hypokalemia; R29.701 NIHSS score 1; I16.0 Hypertensive urgency; F10.20 Alcohol dependence, uncomplicated; E78.5 Hyperlipidemia, unspecified; E83.42 Hypomagnesemia; Y90.0 Blood alcohol level of less than 20 mg/100 ml; I25.2 Old myocardial infarction
CPT/HCPCS: 36415; 70551; 71045; 80048; 80053; 80061; 80306; 80307; 81003; 81015; 82140; 82553; 83036; 83735; 84443; 84484; 85025; 85027; 93005; 93010; 93306; 93880; A4216; G8978-GP-CI; G8979-GP-CI; G8980-GP-CI; G8987-GO-CI; G8988-GO-CI; G8989-GO-CI; G9168-GN-CK; G9169-GN-CK; J0360; J3411; J3475; J7050